=== PATIENT | female | born 1990 | race Two or more races ===

== ENCOUNTER → 2020-02-28 | Outpatient (CLI) | payer BC, OTHER ==
[~2020-02-28] MED LIST: DESV50TA PO; HYDR50TA99 PO; LAMO150T4 PO
== END | disposition home or self-care (01) ==
LOC: STAR 08:00 → MERGE 15:49
PROVIDERS: ATTEND Anesthesiology
DX: Z20.828 Contact with and (suspected) exposure to other viral communicable diseases (principal)
CPT/HCPCS: 87635

== ENCOUNTER 2020-03-03 08:55 | Day surgery (SDC) | payer BC, OTHER ==
[~2020-03-03] VITALS: Ht 175.3 cm; Wt 111.1 kg
[~2020-03-03 08:55] MED LIST changes: +BUPIVACAINE/PF 0.25% ONE; +BUPIVACAINE/PF 0.5% ONE; -DESV50TA PO; -HYDR50TA99 PO; -LAMO150T4 PO; +LIDOCAINE/PF 1%, 30ML ONE
[2020-03-03 09:30] VITALS: BP 105/70
[2020-03-03] MEDS ORDERED: LACTATED RINGERS 1,000 ML IV SCH (09:36)
[2020-03-03] MEDS ORDERED: CHLORHEXIDINE 15 ML UDC MM STA (09:36)
[2020-03-03] MEDS ORDERED: DESV50TA PO (09:50)
[2020-03-03] MEDS ORDERED: LAMO150T4 PO (09:50)
[2020-03-03] MEDS ORDERED: HYDR50TA99 PO (09:50)
[2020-03-03] MEDS ORDERED: KETOROLAC 30 MG/1 ML ONE (09:53)
[2020-03-03] MEDS ORDERED: CEFAZOLIN 1,000 MG ONE (09:53)
[2020-03-03] MEDS ORDERED: ROCURONIUM 10MG/ML,5ML ONE (09:53)
[2020-03-03] MEDS ORDERED: ONDANSETRON 2MG/ML, 2ML ONE (09:53)
[2020-03-03] MEDS ORDERED: PROPOFOL 10 MG/ML, 20ML ONE (09:53)
[2020-03-03] MEDS ORDERED: SUGAMMADEX 200 MG/2 ML IVPush ONE (09:53)
[2020-03-03] MEDS ORDERED: DEXAMETHASONE 4 MG/ML, 1ML ONE (09:53)
[2020-03-03] MEDS ORDERED: FENTANYL PF 100 MCG/2ML ONE ×2 (10:13→11:44)
[2020-03-03] MEDS ORDERED: MIDAZOLAM 1 MG/ML, 2ML ONE (10:15)
[2020-03-03 10:24] LABS: HCG UR SG 1.014 (1.003-1.030)
[2020-03-03] MEDS ORDERED: HYDROmorphone 1 MG/ML, 1ML INJ IVPush PRN (11:00)
[2020-03-03] MEDS ORDERED: OXYcodone 5 MG/5 ML ORAL.SOL UDC PO PRN (11:00)
[2020-03-03] MEDS ORDERED: ONDANSETRON 2MG/ML, 2ML IVPush PRN (11:00)
[2020-03-03] MEDS ORDERED: ACETAMINOPHEN 325 MG TABLET PO PRN (11:00)
[2020-03-03] MEDS ORDERED: MEPERIDINE/PF 25MG/0.5ML IVPush PRN (11:00)
[2020-03-03] MEDS ORDERED: DIPHENHYDRAMINE 50 MG/ML, 1ML IVPush PRN (11:00)
[2020-03-03] MEDS ORDERED: PROMETHAZINE 25 MG/ML, 1ML IVPush PRN (11:00)
[2020-03-03] MEDS ORDERED: OXYcodone 5 MG/5 ML ORAL.SOL UDC ONE (11:44)
[2020-03-03] MEDS: FENTANYL PF 100 MCG/2ML IV PRN ×2 (11:46→11:51)
[2020-03-03] MEDS ORDERED: HYDROmorphone 1 MG/ML, 1ML INJ ONE (12:05)
== END 2020-03-03 13:45 | disposition home or self-care (01) ==
LOC: OUT 08:55 → MERGE 10:30 → OUT 13:45
PROVIDERS: ATTEND Surgery Surgery of the Hand
DX: S63.642A Sprain of metacarpophalangeal joint of left thumb, initial encounter (principal); Z79.899 Other long term (current) drug therapy; Z86.718 Personal history of other venous thrombosis and embolism; Z82.61 Family history of arthritis; X58.XXXA Exposure to other specified factors, initial encounter; Y93.B9 Activity, other involving muscle strengthening exercises; Y92.89 Other specified places as the place of occurrence of the external cause; Y99.8 Other external cause status
CPT/HCPCS: 26540; 81025; C1713; J0690; J1100; J1170; J1885; J2250; J2405; J2704; J3010; J7120